=== PATIENT | male | born 1970 | race Caucasian/White ===

== ENCOUNTER 2018-10-27 15:07 | Emergency (ER) | payer MEDICARE, SELFPAY ==
[2018-10-27 15:11] VITALS: BP 157/104; PULSE 91; RESP 18; TEMP 36.8; O2SAT 97
[2018-10-27 17:22] VITALS: BP 136/95; PULSE 69; RESP 16; O2SAT 96
[2018-10-27 17:31] LABS: Add Manual Diff / Slide Review NO; Basophils Absolute Auto 100 /uL (0-100); Basophils Percent Auto 1.2 % (0-2); Eosinophils Absolute Auto 100 /uL (0-450); Eosinophils Percent Auto 1.6 % (2-4); Hematocrit 43.5 % (41-53); Hemoglobin 14.8 g/dL (13.5-17.5); Lymphocytes Absolute Auto 1900 /uL (1100-4500); Lymphocytes Percent Auto 27.5 % (25-40); Mean Corpuscular HGB Conc 33.9 % (30-36); Mean Corpuscular Hemoglobin 28.6 PG (26-34); Mean Corpuscular Volume 84.3 fL (80-100); Monocytes Absolute Auto 600 /uL (0-900); Monocytes Percent Auto 8.4 % (3-14); Neutrophils Absolute Auto 4200 /uL (1500-7000); Neutrophils Percent Auto 61.3 % (50-75); Platelet Count 298 X10^3/uL (150-400); Red Blood Cell Count 5.16 X10^6/uL (4.5-5.9); Red Cell Distribution Width 13.4 % (11.6-14.8); White Blood Cell Count 6.8 X10^3/uL (4.5-11.0)
[2018-10-27 17:54] LABS: Alanine Aminotransferase 27 IU/L (21-72); Albumin 4.8 g/dL (3.5-5.0); Albumin Globulin Ratio 1.4 (1.0-2.8); Alkaline Phosphatase 68 U/L (38-126); Aspartate Aminotransferase 23 IU/L (17-59); Bilirubin Total 0.5 mg/dL (0.2-1.3); Blood Urea Nitrogen 18 mg/dL (9-20); Calcium 9.8 mg/dL (8.4-10.2); Carbon Dioxide 26 mmol/L (22-32); Chloride 100 mmol/L (98-107); Estimated Glomerular Filt Rate > 60.0 mL/min (>60); Ethanol (ETOH) < 10 mg/dL; Globulin 3.4 g/dL (1.7-4.1); Glucose 92 mg/dL (70-100); HEMOLYSIS < 15 (0-50); Potassium 4.7 mmol/L (3.4-5.1); Sodium 137 mmol/L (137-145); Total Protein 8.2 g/dL (6.3-8.2)
[2018-10-27] MEDS: QUETIAPINE 100 MG TABLET PO (17:57)
[2018-10-27 18:35] LABS: Thyroid Stimulating Hormone 1.59 uIU/mL (0.47-4.68)
--- NOTE | 2018-10-27 19:49 | ED_ITS ---
HPI - Psych General Chief Complaint: Psychiatric Symptoms Stated Complaint: Mental health evaluation Time Seen by Provider: 10/27/18 17:04 Source: patient and police Mode of arrival: ambulatory Limitations: no limitations History of Present Illness HPI Narrative: this is a 48-year-old male who was brought to the emergency department after being pulled over by the police department. Patient states that he is schizophrenic. He states that he been feeling like he could use a little bit of help. He states he is not having any suicidal, no homicidal thoughts no thoughts or intent of hurting himself. He denies any hallucinations. He states that his symptoms are typically exacerbated by media which he tries to avoid he states that he has been feeling a little bit anxious and has several activities this week that are making him feel little more anxious. Patient states he has not been doing a good job of following up with his mental health care provider and has not seen them since the beginning of the year. He states he is out of his Seroquel he did have 1 dose yesterday and states that was his last dose. He denies any ingestion of drugs or alcohol. he states when pulled over by the police they were talking he let them know that he was schizophrenic and they brought him for evaluation because patient thought it may be helpful. Related Data Home Medications Medication Instructions Recorded Confirmed multivitamin 1 tab PO DAILY 10/27/18 10/27/18 Previous Rx's Medication Instructions Recorded quetiapine 100 mg tablet 100 mg PO BEDTIME #90 tab 05/11/18 quetiapine [Seroquel] 100 mg PO BEDTIME #30 tab 10/27/18 Allergies Allergy/AdvReac Type Severity Reaction Status Date / Time No Known Drug Allergies Allergy Verified 10/27/18 17:52 Review of Systems Review of Systems ROS Unobtainable: All systems reviewed & are unremarkable except as noted in HPI and below Neurologic Denies behavioral changes Psychiatric Reports anxiety, Denies behavioral changes, Denies depression, Denies auditory hallucinations, Denies mood swings, Denies paranoia, Denies visual hallucinations, Denies hallucinations, Denies tactile hallucinations, Denies homicidal ideation and Denies suicidal ideation PFS Social History Smoking Status: Former smoker Social History details: currently living in car, has family locally and multiple friends housing: homeless Smoking Status: Former smoker Exam Narrative Exam Narrative: GENERAL: Alert and oriented x three, Well-nourished, well- appearing male, patient appears well kept and is in no acute distress HEENT: Head normocephalic, atraumatic, EOMI, pupils reactive, face symmetric, moist mucous membranes NECK: Supple, full range of motion CARDIOVASCULAR: Regular rate and rhythm without murmurs, rubs or gallops. RESPIRATORY: Breath sounds equal bilaterally, no wheezes rales or rhonchi. ABDOMEN: Soft, nontender. Normoactive bowel sounds all 4 quadrants. No guarding or rebound, rigidity, no mass EXTREMITIES: Normal range of motion, no clubbing or edema. Neurovascularly intact NEUROLOGICAL: Cranial nerves II through XII grossly intact. Moving all extremities SKIN: Warm, dry, no petechiae, no rashes or lesions. PSYCH: denies suicidal intent or ideation, denies homicidal intent or ideation, denies hallucinations, denies depression, positive for anxiety. Initial Vital Signs Initial Vital Signs: Vital Signs Temperature 98.3 F 10/27/18 15:11 Pulse Rate 91 H 10/27/18 15:11 Respiratory Rate 18 10/27/18 15:11 Blood Pressure 157/104 H 10/27/18 15:11 Pulse Oximetry 97 10/27/18 15:11 Course Orders Ordered: ED Orders 10/27/18 17:22 Complete Blood Count AUTO DIFF Stat Comprehensive Metabolic Panel Stat Ethanol (ETOH) Stat Thyroid Stimulating Hormone Stat Discontinued Medications Quetiapine Fumarate (Seroquel) 100 mg PO NOW ONE Stop: 10/27/18 18:01 Last Admin: 10/27/18 17:57 Dose: 100 mg Vital Signs - 8 hr 10/27/18 15:11 10/27/18 17:22 Temperature 98.3 F Pulse Rate 91 H 69 Respiratory Rate 18 16 Blood Pressure 157/104 H Blood Pressure [Left Arm] 136/95 H Pulse Oximetry 97 96 MDM - Psych Lab Data Attestation: I reviewed the patient's lab results. Result diagrams: 10/27/18 17:22 10/27/18 17:22 Lab Results 10/27/18 10/27/18 10/27/18 Range/Units 17:22 17:22 17:22 WBC 6.8 (4.5-11.0) X10^3/uL RBC 5.16 (4.5-5.9) X10^6/uL Hgb 14.8 (13.5-17.5) g/dL Hct 43.5 (41-53) % MCV 84.3 (80-100) fL MCH 28.6 (26-34) PG MCHC 33.9 (30-36) % RDW 13.4 (11.6-14.8) % Plt Count 298 (150-400) X10^3/uL Neut % (Auto) 61.3 (50-75) % Lymph % (Auto) 27.5 (25-40) % Ramsey % (Auto) 8.4 (3-14) % Eos % (Auto) 1.6 L (2-4) % Baso % (Auto) 1.2 (0-2) % Neut # (Auto) 4200 (6456-0319) /uL Lymph # (Auto) 1900 (9631-9180) /uL Ramsey # (Auto) 600 (0-900) /uL Eos # (Auto) 100 (0-450) /uL Baso # (Auto) 100 (0-100) /uL Sodium 137 (137-145) mmol/L Potassium 4.7 (3.4-5.1) mmol/L Chloride 100 (98-107) mmol/L Carbon Dioxide 26 (22-32) mmol/L BUN 18 (9-20) mg/dL Creatinine 1.00 (0.66-1.25) mg/dL Estimated GFR > 60.0 (>60) mL/min BUN/Creatinine Ratio 18.0 (6-22) Glucose 92 (70-100) mg/dL Calcium 9.8 (8.4-10.2) mg/dL Total Bilirubin 0.5 (0.2-1.3) mg/dL AST 23 (17-59) IU/L ALT 27 (21-72) IU/L Alkaline Phosphatase 68 (38-126) U/L Total Protein 8.2 (6.3-8.2) g/dL Albumin 4.8 (3.5-5.0) g/dL Globulin 3.4 (1.7-4.1) g/dL Albumin/Globulin Ratio 1.4 (1.0-2.8) TSH 1.59 (0.47-4.68) uIU/mL Ethyl Alcohol < 10 mg/dL MDM Narrative Medical decision making narrative: Discussed with patient we discussed getting him a refill of her Seroquel and go ahead and giving him his normal dose here in the emergency department. Patient has follow-up that he can arrange with his care provider here through the hospital but also given the number for the CP team, he has not worked with them recently but has worked with [facility] about 15 years ago. Was given the resource number which is also the suicide hotline number. Patient knows that these are the same. Patient is denying any intent to harm self or others and does not appear to be gravely disabled. He appears alert, oriented, cooperative and able to take good care of himself at this time. He contacted his family to come get him. Discharge Plan Departure Patient Disposition: Home Clinical Impression: Schizophrenia Discharge Date/Time: 10/27/18 18:54 Interventions: ED Discharge Assessment Last Done: 10/27/18 18:52 Instructions: DI for Schizophrenia Activity Restrictions/Additional Instructions: Follow up With your psychiatrist this week, call for an appointment. Continue your Seroquel as prescribed. Your prescription was sent to the pharmacy. If you prefer you can call the see it team and do next day follow-up appointment either in the office, over the phone or in person. The number is the same as the suicide hotline and included below. Return to the emergency department for worsening symptoms if you feel that you are a danger to herself and others, if you are having suicidal thoughts or the urge to hurt or kill yourself, if you are having hallucinations, rapidly worsening depression or anxiety or other new or concerning symptoms. If you're feeling suicidal or having suicidal thoughts, contact the suicide hotline ([facility] team number): . Prescriptions: New quetiapine [Seroquel] 100 mg tablet 100 mg PO BEDTIME Qty: 30 RF: 0 No Action quetiapine 100 mg tablet 100 mg PO BEDTIME Qty: 90 RF: 1 multivitamin Tablet,Chewable 1 tab PO DAILY RF: 0 Referrals: Titi Brown MD [Primary Care Provider] -
== END 2018-10-27 18:54 | disposition home or self-care (01) ==
PROVIDERS: Emergency Provider Emergency Medicine; PCP Family Medicine
DX: F20.9 Schizophrenia, unspecified (principal)
CPT/HCPCS: 80053; 80320; 84443; 85025; 99282; 99283